=== PATIENT | male | born 1995 | race Hispanic/Latino ===

== ENCOUNTER 2018-05-24 20:56 | Emergency (ER) | payer SELFPAY ==
[2018-05-24 21:15] VITALS: BMI 26.7
[2018-05-24] MEDS ORDERED: Sodium Chloride 0.9% 1,000 ML IV STA (21:30)
[2018-05-24] MEDS ORDERED: Alum-Mag Hydrox-Simethicone Susp (30 mL) PO STA (21:30)
--- NOTE | 2018-05-24 21:33 | ED PDOC ---
Arrival/HPI - General Chief Complaint: GI Problem Time Seen by Provider: 05/24/18 21:17 Historian: Patient - History of Present Illness Narrative History of Present Illness (Text): 05/24/18 21:30 23 year old male, with no significant past medical history, who presents to the Emergency department complaining of intermittent abdominal pain since last night. Patient notes associated diarrhea. Patient notes pain as a tightness. Patient took an Imodium pill and pepto-bismol, with no relief. Patient denies any fever, chills, chest pain, shortness of breath, nausea, vomiting, urinary symptoms, back pain, neck pain, headache, dizziness, or any other complaints. Time/Duration: 24 hours Symptom Onset: Gradual Symptom Course: Unchanged Activities at Onset: Light Context: Home Past Medical History - Provider Review Nursing Documentation Reviewed: Yes - Infectious Disease Hx of Infectious Diseases: None - Tetanus Immunization Tetanus Immunization: Unknown - Past Medical History Past Medical History: No Previous - Psychiatric Hx Substance Use: Yes - Past Surgical History Past Surgical History: No Previous - Anesthesia Hx Anesthesia: No - Suicidal Assessment Feels Threatened In Home Enviroment: No Family/Social History - Physician Review Nursing Documentation Reviewed: Yes Family/Social History: Unknown Family HX Smoking Status: Light Smoker < 10 Cigarettes Daily Hx Alcohol Use: Yes Frequency of alcohol use: Socially Hx Substance Use: Yes Substance used: marijuana Allergies/Home Meds Allergies/Adverse Reactions: Allergies No Known Allergies Allergy (Verified 04/11/15 14:33) Home Medications: Home Meds Medication Instructions Recorded Confirmed No Known Home Med 05/24/18 05/24/18 Review of Systems - Physician Review All systems were reviewed & negative as marked: Yes - Review of Systems Constitutional: Normal Eyes: Normal ENT: Normal Respiratory: Normal. absent: SOB, Cough Cardiovascular: Normal. absent: Chest Pain Gastrointestinal: Abdominal Pain, Diarrhea. absent: Vomiting Genitourinary Male: Normal. absent: Dysuria, Frequency, Hematuria Musculoskeletal: Normal. absent: Back Pain, Neck Pain Skin: Normal. absent: Rash Neurological: Normal. absent: Headache, Dizziness Endocrine: Normal Hemo/Lymphatic: Normal Psychiatric: Normal Physical Exam - Physical Exam Narrative Physical Exam (Text): 05/24/18 21:33 Constitutional: No acute distress. Head: Normocephalic. Atraumatic. Eyes: PERRL. ENT: Moist mucous membranes. Neck: Supple. Cardiovascular: Regular rate. Chest: No tenderness. Respiratory: Clear to auscultation bilaterally. GI: Diffuse abdominal tenderness. Nondistended. Most RLQ. Back: No CVA tenderness. Musculoskeletal: No tenderness or swelling of extremities. Skin: No rash. Neurologic: Alert, no focal deficit. Vital Signs Reviewed: Yes Vital Signs Temp Pulse Resp BP Pulse Ox 05/24/18 21:14 99.4 F 93 H 18 125/77 100 Temperature: Afebrile Blood Pressure: Normal Pulse: Regular Respiratory Rate: Normal Appearance: Positive for: Well-Appearing, Non-Toxic, Comfortable Pain Distress: None Mental Status: Positive for: Alert and Oriented X 3 Medical Decision Making ED Course and Treatment: 05/24/18 21:34 Impression: 23 year old male presents to the Emergency department complaining of abdominal pain and diarrhea since last night. Plan: -- Labs -- Pepcid -- Zofran -- Sodium Chloride -- Maalox Plus -- UA -- Reassess and disposition Progress Notes: 05/24/18 22:46 Mild leukocytosis. Will send patient for CT abdomen/pelvis to rule out appendicitis. Signed out to ED night team. - Lab Interpretations Lab Results: 05/24/18 22:21 05/24/18 22:21 Lab Results 05/24/18 22:21: Sodium 143, Potassium 3.8, Chloride 100, Carbon Dioxide 28, Anion Gap 19, BUN 10, Creatinine 0.8, Est GFR ( Amer) > 60, Est GFR (Non- Af Amer) > 60, Random Glucose 91, Calcium 9.7, Total Bilirubin 2.0 H, AST 24, ALT 30, Alkaline Phosphatase 75, Total Protein 8.6 H, Albumin 5.1 H, Globulin 3.5, Albumin/Globulin Ratio 1.4, Lipase 14 L 05/24/18 22:21: Urine Color Yellow, Urine Appearance Sl cloudy, Urine pH 6.0, Ur Specific [place] >= 1.030, Urine Protein 30 H, Urine Glucose (UA) Negative, Urine Ketones >=80, Urine Blood Negative, Urine Nitrate Negative, Urine Bilirubin Negative, Urine Urobilinogen 0.2, Ur Leukocyte Esterase Negative, Urine RBC Negative, Urine WBC Negative, Urine Other Mucus 05/24/18 22:21: WBC 13.8 H, RBC 5.67, Hgb 17.0, Hct 48.9, MCV 86.2, MCH 30.0, MCHC 34.8, RDW 13.2, Plt Count 189, MPV 9.2, Gran % 78.5 H, Lymph % (Auto) 14.8 L, [place] % (Auto) 6.3 H, Eos % (Auto) 0.3 L, Baso % (Auto) 0.1, Gran # 10.81 H, Lymph # (Auto) 2.0, [place] # (Auto) 0.9 H, Eos # (Auto) 0.0, Baso # (Auto) 0.02 - RAD Interpretation Radiology Orders: 05/24/18 22:41 ABD PELVIS PO & IV CONTRAST [CT] Stat - Medication Orders Current Medication Orders: Discontinued Medications Al Hydrox/Mg Hydrox/Simethicone (Maalox Plus 30 Ml) 30 ml PO STAT STA Stop: 05/24/18 21:31 Last Admin: 05/24/18 21:54 Dose: 30 ml Famotidine (Pepcid) 20 mg IVP STAT STA Stop: 05/24/18 21:31 Last Admin: 05/24/18 21:54 Dose: 20 mg IVP Administration Document 05/24/18 21:54 OCS (Rec: 05/24/18 21:54 OCS [id number]) Charges for Administration # of IVP Administrations 1 Sodium Chloride (Sodium Chloride 0.9%) 1,000 mls @ 999 mls/hr IV .Q1H1M STA Stop: 05/24/18 22:30 Last Admin: 05/24/18 21:52 Dose: 999 mls/hr eMAR Start Stop Document 05/24/18 21:52 OCS (Rec: 05/24/18 21:52 OCS [id number]) Intravenous Solution Start Date 05/24/18 Start Time 21:52 End Date 05/24/18 End time 22:53 Total Infusion Time 61 Ondansetron HCl (Zofran Inj) 8 mg IVP STAT STA Stop: 05/24/18 21:31 Last Admin: 05/24/18 21:54 Dose: 8 mg IVP Administration Document 05/24/18 21:54 OCS (Rec: 05/24/18 21:54 OCS [id number]) Charges for Administration # of IVP Administrations 1 - Scribe Statement The provider has reviewed the documentation as recorded by the Scribe Zeny Hebert All medical record entries made by the Scribe were at my direction and personally dictated by me. I have reviewed the chart and agree that the record accurately reflects my personal performance of the history, physical exam, medical decision making, and the department course for this patient. I have also personally directed, reviewed, and agree with the discharge instructions and disposition. Disposition/Present on Arrival - Present on Arrival Any Indicators Present on Arrival: No History of DVT/PE: No History of Uncontrolled Diabetes: No Urinary Catheter: No History of Decub. Ulcer: No History Surgical Site Infection Following: None - Disposition Have Diagnosis and Disposition been Completed?: No Diagnosis: Abdominal pain Disposition Time: 22:47 Condition: FAIR Forms: [employer] (Salvadorean)
[2018-05-24 22:29] LABS: URINE BILIRUBIN NEGATIVE (NEGATIVE); URINE BLOOD NEGATIVE (NEGATIVE); URINE GLUCOSE (UA) NEGATIVE (NEGATIVE); URINE LEUKOCYTE ESTERASE NEGATIVE Leu/uL (NEGATIVE); URINE PROTEIN 30 mg/dL (<30 mg/dL); URINE UROBILINOGEN 0.2 E.U./dL (<1 E.U./dL)
[2018-05-24 22:30] LABS: BASO # 0.02 K/mm3 (0.0-2.0); BASO % 0.1 % (0.0-3.0); EOS % 0.3 % (1.5-5.0); GRAN # 10.81 (1.4-6.5); GRAN % 78.5 % (50.0-68.0); LYMPH % 14.8 % (22.0-35.0); MEAN CELL VOLUME 86.2 fl (80.0-105.0); MEAN CORPUSCULAR HGB CONC 34.8 g/dl (31.0-37.0); MEAN PLATELET VOLUME 9.2 fl (7.0-11.0); MONO # 0.9 (0.1-0.6); MONO % 6.3 % (1.0-6.0); RBC 5.67 10^6/uL (3.5-6.1); RED CELL DISTRIBUTION WIDTH 13.2 % (11.5-14.5); WHITE BLOOD COUNT 13.8 10^3/ul (4.5-11.0)
[2018-05-24 22:31] LABS: URINE APPEARANCE SL CLOUDY (CLEAR); URINE COLOR YELLOW (YELLOW)
[2018-05-24 22:32] LABS: URINE RBC NEGATIVE /hpf (0-2); URINE WBC NEGATIVE /hpf (0-6)
[2018-05-24 22:37] LABS: ALB/GLOB RATIO 1.4 (1.1-1.8); ALBUMIN 5.1 g/dL (3.0-4.8); ALT/SGPT 30 U/L (7-56); AST/SGOT 24 U/L (17-59); BLOOD UREA NITROGEN 10 mg/dL (7-21); CALCIUM 9.7 mg/dL (8.4-10.5); GFR AFRICAN-AMERICAN > 60; GFR NON-AFRICAN AMERICAN > 60; LIPASE 14 U/L (23-300)
[2018-05-24] MEDS ORDERED: Iohexol 240 (50 ml) ONE (23:03)
[2018-05-25] MEDS ORDERED: Iohexol 350 MG/100 ML VIAL ONE (00:05)
[2018-05-25 01:03] VITALS: TEMP 98.5
--- NOTE | 2018-05-25 01:54 | ED PDOC ---
Physical Exam Vital Signs Temp Pulse Resp BP Pulse Ox 05/25/18 01:00 98.5 F 77 19 126/72 98 05/24/18 21:14 99.4 F 93 H 18 125/77 100 Medical Decision Making ED Course and Treatment: 05/24/18 22:45 Case endorsed to me by Dr. Perera, pending CT Abdomen and Pelvis, re-evaluation, and disposition. 05/25/18 03:10 CT Abdomen and Pelvis shows: Lung bases: Unremarkable. No mass. No consolidation. ABDOMEN: Liver: Unremarkable. No mass. Gallbladder and bile ducts: Unremarkable. No calcified stones. No ductal dilation. Pancreas: Unremarkable. No mass. No ductal dilation. Spleen: Unremarkable. No splenomegaly. Adrenals: Unremarkable. No mass. Kidneys and ureters: Unremarkable. No solid mass. No hydronephrosis. Stomach and bowel: Thickened appearance of the ascending colon suspicious for a nonspecific right-sided colitis, either infectious or inflammatory. No obstruction. PELVIS: Appendix: No findings to suggest acute appendicitis. Bladder: Unremarkable. No mass. Reproductive: Unremarkable as visualized. ABDOMEN and PELVIS: Intraperitoneal space: Unremarkable. No free air. No significant fluid collection. Bones/joints: No acute fracture. No dislocation. Soft tissues: Unremarkable. Vasculature: Unremarkable. No abdominal aortic aneurysm. Lymph nodes: [place] nonspecific retroperitoneal lymphadenopathy is noted. IMPRESSION: Thickened appearance of the ascending colon suspicious for a nonspecific right- sided colitis, either infectious or inflammatory. Dictated and Authenticated by: Tray Nguyen MD 05/25/2018 3:06 AM Eastern Time ([place] & Vel) - Lab Interpretations Lab Results: 05/24/18 22:21 05/24/18 22:21 Lab Results 05/24/18 22:21: Sodium 143, Potassium 3.8, Chloride 100, Carbon Dioxide 28, Anion Gap 19, BUN 10, Creatinine 0.8, Est GFR ( Amer) > 60, Est GFR (Non- Af Amer) > 60, Random Glucose 91, Calcium 9.7, Total Bilirubin 2.0 H, AST 24, ALT 30, Alkaline Phosphatase 75, Total Protein 8.6 H, Albumin 5.1 H, Globulin 3.5, Albumin/Globulin Ratio 1.4, Lipase 14 L 05/24/18 22:21: Urine Color Yellow, Urine Appearance Sl cloudy, Urine pH 6.0, Ur Specific [place] >= 1.030, Urine Protein 30 H, Urine Glucose (UA) Negative, Urine Ketones >=80, Urine Blood Negative, Urine Nitrate Negative, Urine Bilirubin Negative, Urine Urobilinogen 0.2, Ur Leukocyte Esterase Negative, Urine RBC Negative, Urine WBC Negative, Urine Other Mucus 05/24/18 22:21: WBC 13.8 H, RBC 5.67, Hgb 17.0, Hct 48.9, MCV 86.2, MCH 30.0, MCHC 34.8, RDW 13.2, Plt Count 189, MPV 9.2, Gran % 78.5 H, Lymph % (Auto) 14.8 L, [place] % (Auto) 6.3 H, Eos % (Auto) 0.3 L, Baso % (Auto) 0.1, Gran # 10.81 H, Lymph # (Auto) 2.0, [place] # (Auto) 0.9 H, Eos # (Auto) 0.0, Baso # (Auto) 0.02 - RAD Interpretation Radiology Orders: 05/24/18 22:41 ABD PELVIS PO & IV CONTRAST [CT] Stat Marine Engineer: Radiologist - Medication Orders Current Medication Orders: Ciprofloxacin (Cipro) 500 mg PO STAT STA PRN Reason: Protocol Stop: 05/25/18 03:12 Metronidazole (Flagyl) 500 mg PO STAT STA PRN Reason: Protocol Stop: 05/25/18 03:12 Discontinued Medications Al Hydrox/Mg Hydrox/Simethicone (Maalox Plus 30 Ml) 30 ml PO STAT STA Stop: 05/24/18 21:31 Last Admin: 05/24/18 21:54 Dose: 30 ml Famotidine (Pepcid) 20 mg IVP STAT STA Stop: 05/24/18 21:31 Last Admin: 05/24/18 21:54 Dose: 20 mg IVP Administration Document 05/24/18 21:54 OCS (Rec: 05/24/18 21:54 OCS [id number]) Charges for Administration # of IVP Administrations 1 Sodium Chloride (Sodium Chloride 0.9%) 1,000 mls @ 999 mls/hr IV .Q1H1M STA Stop: 05/24/18 22:30 Last Admin: 05/24/18 21:52 Dose: 999 mls/hr eMAR Start Stop Document 05/24/18 21:52 OCS (Rec: 05/24/18 21:52 OCS [id number]) Intravenous Solution Start Date 05/24/18 Start Time 21:52 End Date 05/24/18 End time 22:53 Total Infusion Time 61 Ondansetron HCl (Zofran Inj) 8 mg IVP STAT STA Stop: 05/24/18 21:31 Last Admin: 05/24/18 21:54 Dose: 8 mg IVP Administration Document 05/24/18 21:54 OCS (Rec: 05/24/18 21:54 OCS [id number]) Charges for Administration # of IVP Administrations 1 Disposition/Present on Arrival - Present on Arrival Any Indicators Present on Arrival: No History of DVT/PE: No History of Uncontrolled Diabetes: No Urinary Catheter: No History of Decub. Ulcer: No History Surgical Site Infection Following: None - Disposition Have Diagnosis and Disposition been Completed?: Yes Diagnosis: Abdominal pain, Colitis Disposition: HOME/ ROUTINE Disposition Time: 02:30 Condition: GOOD Discharge Instructions (ExitCare): Diarrhea in Adolescents and Adults, Acute Abdomen (Belly Pain), Adult (DC) Additional Instructions: CARLINE GILMORE, thank you for letting us take care of you today. The emergency medical care you received today was directed at your acute symptoms. If you were prescribed any medication, please fill it and take as directed. It may take several days for your symptoms to resolve. Return to the Emergency Department if your symptoms worsen, do not improve, or if you have any other problems. Please contact your doctor or call one of the physicians/clinics you have been referred to that are listed on the Patient Visit Information form that is included in your discharge packet. Bring any paperwork you were given at discharge with you along with any medications you are taking to your follow up visit. Our treatment cannot replace ongoing medical care by a primary care provider outside of the emergency department. Thank you for allowing the [facility] team to be part of your care today. Follow up with your primary care doctor in 2-3 days for re-evaluation and further management. Prescriptions: Ciprofloxacin [Cipro] 500 mg PO BID #14 tab metroNIDAZOLE [Flagyl] 500 mg PO TID #21 tab Referrals: [facility] [Outside] - Follow up with primary [facility] [place] [Outside] - Follow up with primary Forms: [employer] (Luxembourgish)
[2018-05-25 03:44] VITALS: BP 120/70; PULSE 72; RESP 17; O2SAT 100
--- NOTE | 2018-05-25 08:34 | CT ---
PROCEDURE: CT Abdomen and Pelvis with contrast HISTORY: abdominal pain, RLQ tenderness COMPARISON: None. TECHNIQUE: Contrast dose: 100 mL Omnipaque 350 Radiation dose: Total exam DLP = 815.58 mGy-cm. This CT exam was performed using one or more of the following dose reduction techniques: Automated exposure control, adjustment of the mA and/or kV according to patient size, and/or use of iterative reconstruction technique. FINDINGS: LOWER THORAX: Unremarkable. LIVER: Unremarkable. No gross lesion or ductal dilatation. GALLBLADDER AND BILE DUCTS: Unremarkable. PANCREAS: Unremarkable. No gross lesion or ductal dilatation. SPLEEN: Minimal splenomegaly. Two small accessory spleen source splenules are identified, 2.0 cm and 4.0 cm respectively. . ADRENALS: Unremarkable. No mass. KIDNEYS AND URETERS: Unremarkable. No hydronephrosis. No solid mass. VASCULATURE: Unremarkable. No aortic aneurysm. BOWEL: There is mural thickening of the hepatic flexure of the colon and proximal transverse colon. Nonspecific colitis. No other abnormal bowel loops are identified. This colitis may be infectious or inflammatory in etiology. There is no bowel obstruction. APPENDIX: Normal appendix. PERITONEUM: Unremarkable. No free fluid. No free air. LYMPH NODES: Unremarkable. No enlarged lymph nodes. BLADDER: Unremarkable. REPRODUCTIVE: Normal prostate BONES: No acute fracture. OTHER FINDINGS: None. IMPRESSION: Nonspecific colitis involving the hepatic flexure and proximal transverse colon. Infectious or inflammatory etiology. No other significant abnormality is identified. Preliminary interpretation of this examination was reported by [employer] at 3:06 a.m. on 05/25/2018. There is concurrence of this report with the preliminary interpretation.
== END 2018-05-25 03:43 | disposition home or self-care (01) ==
LOC: ED 20:56
DX: K52.9 Noninfective gastroenteritis and colitis, unspecified (principal); F17.210 Nicotine dependence, cigarettes, uncomplicated; R10.9 Unspecified abdominal pain
CPT/HCPCS: 74177; 80053; 81001; 83690; 85025; 96361; 96374; 96375; 99283; J2405; J7030; Q9966; Q9967